=== PATIENT | female | born 1990 | race Caucasian/White ===

== ENCOUNTER 2025-03-09 15:46 | Emergency (ER) | payer BC, SELFPAY ==
[2025-03-09 15:50] VITALS: BP 118/64
[2025-03-09 16:15] LABS: Hematocrit 30.1 % (37.0-47.0); Hemoglobin 10.1 g/dL (12.0-16.0); Mean Corp Hgb Conc. 33.6 g/dL (33.0-37.0); Mean Corpuscular Volume 84.8 fL (81.0-99.0); Nucleated Red Blood Cells % 0 %; Platelet Count 354 10^3/uL (130-400); Red Cell Dist. Width 15.9 % (11.5-14.5)
[2025-03-09 16:22] LABS: HCG, Serum Qualitative Screen Positive
[2025-03-09 16:28] LABS: ALT (SGPT) 13 U/L (0-35); AST (SGOT) 17 U/L (14-36); Albumin 4.3 g/dl (3.5-5.0); Alkaline Phosphatase 41 U/L (38-126); Blood Urea Nitrogen 14 mg/dl (7-17); Calcium 9.2 mg/dl (8.4-10.2); Carbon Dioxide 25 mmol/L (22-30); Chloride 105 mmol/L (98-107); Glucose 114 mg/dl (70-99); Potassium 4.0 mmol/L (3.5-5.1); Sodium 137 mmol/L (135-145); Total Protein 7.3 g/dl (6.3-8.2); eGFR > 60.00
--- NOTE | 2025-03-09 18:04 | ED.GENMED ---
History of Present Illness
General
Chief Complaint: Vaginal Bleeding
Source: patient
Exam Limitations: none
Time Seen by Provider: 03/09/25 16:26
Nursing documentation reviewed up to this point in time: agreed with
History of Present Illness
History of Present Illness:
34-year-old female with history of hypothyroidism, 2 para 1 miscarriage 1, was 9 weeks and 1 day , presents for heavy vaginal bleeding with clots patient had a miscarriage.
9 days ago and had a D&C at [facility] 4 days ago. Afterwards, there was not much bleeding until this morning when she had significantly increase in bleeding with clots that became larger and larger as the day wore on and associated with
cramping. Denies fever or chills. She is on Augmentin 875 mg twice daily since the D&E
Past History
Past History
ED Past Medical History: Hypothyroidism
Review of Systems
Review of Systems
Allergies reviewed?: Yes
All Other Systems: ROS reviewed and negative except as documented in HPI and ROS
Phy Exam
Physical Exam
Physical Exam:
GENERAL: No acute distress. A&Ox3.
CONSTITUTIONAL: Afebrile.
EYES: clear, conjunctivae normal
ENMT: moist mucus membranes, Pharynx nl
RESPIRATORY: Regular respirations, nonlabored, lungs clear.
CARDIOVASCULAR: Regular rate and rhythm, no murmurs, no rubs.
GI: Soft, nontender, normal BS
: Just changed a soaked pad with a clot
MUSCULOSKELETAL: Moves with ease. Well perfused.
SKIN: Warm, dry, pink
PSYCH: Normal mood and affect. Well kept, interactive and appropriate
NEUROLOGIC: Awake, alert and oriented. No focal neurological deficits
Course
Orders/Labs/Results
Orders:
Orders
03/09/25 15:56
Test Result ONCE
03/09/25 15:58
Type+Screen Urgent
Beta HCG Quantitative Urgent
Comment: ADDON
Complete Blood Count/With Diff Urgent
Comprehensive Metabolic Panel Urgent
HCG, Serum Qualitative Screen Urgent
03/09/25 16:39
Add On- LAB Urgent
Tests Added?: Beta HCG quantitative
03/09/25 16:40
US Pelvis W Transvag Combined Urgent
Comment:
Reason For Exam: heavy bleeding post miscarriage and D&C 4 d ago
03/09/25 19:39
Tranexamic Acid [Cyklokapron] 1,300 mg PO NOW STA
Abnormal Lab Results
03/09/25
15:58
RBC 3.55 L 10^6/uL
(4.20-5.40)
Hgb 10.1 L g/dL
(12.0-16.0)
Hct 30.1 L %
(37.0-47.0)
RDW 15.9 H %
(11.5-14.5)
MPV 10.9 H fL
(7.4-10.4)
Absolute Neuts (auto) 7.4 H 10^3/uL
(1.4-6.5)
Absolute Monos (auto) 0.7 H 10^3/uL
(0.1-0.6)
Neutrophils % 75.7 H %
(42.2-75.2)
Lymphocytes % 15.0 L %
(20.5-51.1)
Glucose 114 H mg/dl
(70-99)
03/09/25 15:58
03/09/25 15:58
Vital Signs
Initial and Last Documented VS:
Initial Vital Signs
Temp Pulse Resp BP Pulse Ox
98.3 F 100 18 118/64 99
03/09/25 15:50 03/09/25 15:50 03/09/25 15:50 03/09/25 15:50 03/09/25 15:50
Last Documented Vital Signs
Temp Pulse Resp BP Pulse Ox
98.3 F 71 18 105/85 97
03/09/25 15:50 03/09/25 19:50 03/09/25 19:50 03/09/25 19:50 03/09/25 19:50
MDM/Problems Addressed
Differential Diagnosis Includes:
Retained products of conception, complication from surgery
MDM/Problems Addressed:
34-year-old female with history of hypothyroidism, 2 para 1 miscarriage 1, presents for heavy vaginal bleeding with clots patient had a miscarriage.
Was 9 weeks and 1 day ,9 days ago and had a D&C at [facility] 4 days ago. Afterwards, there was not much bleeding until this morning when she had significantly increase in bleeding with clots that became larger and larger as the day
wore on and associated with cramping. Denies fever or chills. She is on Augmentin 875 mg twice daily since the D&E
Afebrile, NAD
6:00 PM:
Patient and ultrasound
CBC: Hgb 10.1
CMP normal
7:20 PM:
Ultrasound report read: IMPRESSION:
Heterogeneous endometrial stripe probably due to hemorrhagic products. Otherwise unremarkable exam
Consulted [facility] Dr. Dallas who read US report and agrees with eliana Davis in 2 weeks. Pt will keep her appointment with her current OB in one week.
No significant bleeding since last changed her pad an hour ago
*Pulse Oximetry
SaO2: 99
Oxygen Mode of Delivery: Room air
Patient hypoxic: no
*Critical Care Note
Total Time (30-74mins, 75-104mins- exclusive of procedures): Not Applicable
ED Attending Note
-
Portions of this chart may have been created with voice recognition software.� Occasional wrong word or��sound alike� substitutions may have occurred due to the inherent limitations of voice recognition software.
Discharge Plan
Departure
Patient Disposition: Home (Routine Discharge)
Date of Disposition: 03/09/25
Time of Disposition: 19:41
Patient with high blood pressure during this ER visit?: No
Condition: Good
Discharge Problem:
Abnormal vaginal bleeding
Instructions: Heavy periods - ED (DC)
Prescriptions:
New
tranexamic acid 650 mg tablet
1,300 mg PO TID 4 Days Qty: 24 0RF
No Action
prenat.vits,andria,[id number] Tablet
1 tab PO DAILY
levothyroxine [Synthroid] 50 mcg Tablet
50 mcg PO DAILY
acetaminophen 325 mg Tablet
650 mg PO Q4HPRN PRN (Reason: mild pain) Qty: 30 0RF
ibuprofen 600 mg Tablet
600 mg PO Q6HPRN PRN (Reason: moderate pain/cramps) Qty: 30 0RF
Referrals:
Sana Dallas MD [Active, Gynecology] - Call in 1-3 days for appt
Simone Joseph DO [Family Provider, Family Practice]
Activity Restrictions/Additional Instructions:
As we discussed, I sent a prescription to your pharmacy for the Lysteda. Started tomorrow you were given a dose here tonight
Call the [facility] doctors office tomorrow make an appointment, she recommends you make an appointment for 2 weeks from now.
He may return here anytime for worse bleeding, worse pain, fever, or feeling sicker in any way.
Tylenol or ibuprofen as needed for cramping
Interventions
Interventions:
*Risk Screen - Suicide Last Done: 03/09/25 15:50
*General Assessment Last Done: 03/09/25 15:50
*Neglect/Abuse Screening Last Done: 03/09/25 15:50
*Nursing Disposition Last Done: 03/09/25 20:09
ED-Female Genitourinary Assessment Last Done: 03/09/25 17:13
Discharge Date and Time
Discharge Date/Time: 03/09/25 20:10
Print Language: GERMAN
[2025-03-09 19:34] LABS: Beta HCG Quantitative 2729.60 mIU/ml
[2025-03-09] MEDS: CYKLOKAPRON 1300 MG PO (19:48)
[2025-03-09 19:50] VITALS: BP 105/85
== END 2025-03-09 20:10 | disposition home or self-care (01) ==
LOC: EMR 15:46
PROVIDERS: EMERGENCY PHYSICIAN Emergency Medicine; FAMILY PHYSICIAN Family Medicine
DX: N93.8 Other specified abnormal uterine and vaginal bleeding (principal); E03.9 Hypothyroidism, unspecified
CPT/HCPCS: 99284; 76830; 76856; 80053; 84702; 84703; 85025; 86850; 86900; 86901